=== PATIENT | male | born 1940 | race Caucasian/White ===

== ENCOUNTER 2016-09-19 14:16 | Outpatient (CLI) ==
[2012-10-01 09:40] VITALS: TEMP 97.9
--- NOTE | 2016-09-19 15:25 | DI ---
EXAM: LEFT KNEE. HISTORY: Status post 2 weeks total knee arthroplasty, follow-up FINDINGS / IMPRESSION: Left knee three views. No prior imaging was available for comparison. The prosthesis units appears seated with no obvious dislodgement. There is joint fluid remaining pr esent, mild to moderate volume. No joint gas or soft tissue gas is identified. No acute fracture. Findings can be reviewed by orthopedics if indicated.
== END 2016-09-19 14:17 | disposition home or self-care (01) ==
LOC: RAD 14:16
PROVIDERS: ATTEND Nurse Practitioner Family
DX: Z96.652 Presence of left artificial knee joint (principal); Z47.1 Aftercare following joint replacement surgery; M17.12 Unilateral primary osteoarthritis, left knee

== ENCOUNTER 2016-09-26 15:00 | Outpatient (RCR) ==
[2012-10-01 09:40] VITALS: TEMP 97.9
--- NOTE | 2016-09-04 15:00 | RS.OPPTDN ---
Subjective Date of Note: 09/04/16 Visit #: 2 Date of Evaluation: 08/31/16 Payer Source: MEDICARE Treatment Diagnosis: L TKA Current Subjective/complaints:: Patient says he takes pain meds every 6 hours and alternates Tylenol 500mg also. He says pain has not been too bad and uses ice often at home. He has been performing HEP and feels his knee is getting better. Pain Assessment - Pain Description Pain Location: left knee Current Pain Intensity: 2/10 - Heat/Cryotherapy Treatment: Cryotherapy (20 mins to ant/post L knee following therex) Interventions - Exercise/Activities/Manual Therapy Exercises/Activities: Patient begins to receive PROM for L knee flex/ext, HS, and heel cords and gentle stretching in supine. Patient then performs multiple reps of: QS, Heel slides, hip abd/add and SLR AAROM, SAQ, AP and DF with red tband, Pillow squeezes. Patient sits for LAQ and stands for Hip abd, Ham curls , and hip flexion. All x 10 reps. Total minutes of Exercise: 35 Manual Therapy: NA HOME EXERCISE PROGRAM: standing HS curl, SAQ's, and quad sets to add to the HEP is was given from the hospital. - Charges Total Direct Minutes: 35 Total Treatment Time: 55 Procedures billed for this date of service:: cp, ex2 Assessment: Patient progressing with ROM as he is demo 95 degrees. Mr. Thompson is taking pain meds every 6 hours and ambulating with RW. He demo moderate swelling to the L knee extending to the calf and foot, which is mildly relieved by cryotherapy. He is able to perform and carlos supine and standing therex well and should benefit from further therex and modalities. MD office confirmed with patient/ that therapy staff may remove florentin this week. Patient Education: Education of diagnosis, Body/Joint mechanics, Home Exercise Program, Home Safety, Activity Modification, Education of Plan of Care Patient demonstrates compliance with HEP?: Yes Short Term Goals Goal #1: Patient independent in basic HEP. Goal to be met by: 09/18/16 Progress towards Goal:: Progressing Goal #2: Pt to demo. full left knee extension. Goal to be met by: 09/18/16 Goal #3: Pt to demo. active left knee flexion to 110 degrees. Goal to be met by: 09/18/16 Goal #4: Pt to demonstrate good quad strength of the left knee. 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 Goal to be met by: 10/24/16 Goal #2: Score on LE Functional scale improved to <39% impairment. Goal to be met by: 10/24/16 Goal #3: Pt to amb. w/o assistive device, community distances w/ min. gait deviation Goal to be met by: 10/24/16 Goal #4: LLE ROM WFL's to perform all selfcare and ADL's without difficulty. Goal to be met by: 10/24/16 Plan PLAN OF CARE EXPIRES ON:: 10/24/16 ORDER # VISITS AND/OR THROUGH DATE: 10/24/16 PLAN: Progress Exercises
--- NOTE | 2016-09-04 15:01 | RS.OPPTEV2 ---
Date of Note: 08/31/16 Visit #: 1 Date of Evaluation: 08/31/16 Payer Source: MEDICARE Surgery Performed?: Yes Procedure Performed: Left TKA Date of Procedure: 08/28/16 Treatment Diagnosis: Left knee pain, knee stiffness, s/p left TKA Prior Level of Function.....Patient was independent with: ADL's, Self Care, Caregiving, Ambulation/Mobility, Community Integration/Access Functional Limitations: Sleep, Self Care, ADL's, Reaching, Pushing, Pulling, Lifting, Carrying, Sitting, Standing, Bending, Squatting, Ambulation, Community Access/Integration Current Subjective/complaints:: Patient reports being in the hospital one night. States he has had no prior surgeries to the left LE. He is using a rolling walker. States he has a few steps to get into his home, but no steps inside the home. States he is icing his knee and taking pain medication as prescribed. Reports receiving an injection in the right knee, which has helped. He is limited with all selfcare, ADL's, and ambulation at this time. He was independent with all activities and active outside the home. Treatment Side (optional): Left Medical History Medical History: Hypertension, Arthritis Medical History Comments:: Pulmonary Fibrosis Smoking Status: Never smoker Hx Home Medications: pain medication -does not have list with him Patient's Goals: His goal is to return to his previous level of function. Pain Assessment - Pain Description Pain Location: left knee Current Pain Intensity: 2/10 Worst Pain Intensity: 5/10 Functional Outcome Measure LE Functional Scale: 31 (31/80=61.25% impairment) - G Codes & Severity Modifier G Codes & Modifier: Mobility current CL. Mobility goal CJ Source of G Code score: LE functional scale Observation - Observation Inspection: Presents with light dressing over incision. Demonstrates bruising throughout posterior aspect of knee. Girth Measurement Lower: Left LE: tibial plateau 43 cm, malleoli 26.5 cm Gait - Gait Pattern Gait Comments: Pt ambulates with rolling walker with decreased stance on the left LE. Demonstrates decreased left hip and knee flexion during swing phase. - Left Knee ROM Left Knee Extension: -3 degrees from full extension Left Knee Flexion: 90 (degrees AROM) - Left Knee Strength Left Knee Extension: 4- Good- Left Knee Flexion: 4 Good - Right Knee Strength Right Knee Extension: 4+ Good + Right Knee Flexion: 4+ Good + Palpation Comments:: Mild general tenderness throughout left knee joint. Sensation - Sensation Comments: Reports impaired sensation in LE's that he had prior to surgery. - Heat/Cryotherapy Treatment: Cryotherapy (X 15 mins to left knee following evaluation) Interventions - Exercise/Activities/Manual Therapy Exercises/Activities: Patient instructed in standing HS curl, SAQ's, and quad sets to add to the HEP is was given from the hospital. Manual Therapy: NA HOME EXERCISE PROGRAM: standing HS curl, SAQ's, and quad sets to add to the HEP is was given from the hospital. - Charges Total Direct Minutes: 45 mins Total Treatment Time: 55 mins Procedures billed for this date of service:: EVAL Low complexity Assessment Assessment: Patient presents three days s/p left TKA. He demonstrates limited ROM and strength, along with overall limitation with selfcare, ADL's, and ambulation. He exhibits potential to benefit from therapy to regain functional AROM and return to his previous level of activity. Patient Education: Education of diagnosis, Body/Joint mechanics, Home Exercise Program, Home Safety, Activity Modification, Education of Plan of Care Rehab Potential: Good Short Term Goals Goal #1: Patient independent in basic HEP. Goal to be met by: 09/18/16 Goal #2: Pt to demo. full left knee extension. Goal to be met by: 09/18/16 Goal #3: Pt to demo. active left knee flexion to 110 degrees. Goal to be met by: 09/18/16 Goal #4: Pt to demonstrate good quad strength of the left knee. Goal to be met by: 09/18/16 Halfway Goals Goal #1: Pt knows HEP and to continue ex's to maintain functional level at D/C. Goal to be met by: 10/24/16 Goal #2: Score on LE Functional scale improved to <39% impairment. Goal to be met by: 10/24/16 Goal #3: Pt to amb. w/o assistive device, community distances w/ min. gait deviation Goal to be met by: 10/24/16 Goal #4: LLE ROM WFL's to perform all selfcare and ADL's without difficulty. Goal to be met by: 10/24/16 Plan - Treatment to be Provided Procedures: Therapeutic Exercises, Therapeutic Activity, Manual Therapy, Patient Education Modalities: Electrical Stimulation, Cryotherapy, Hot Packs (once 2 weeks or more from surgery (if necessary)) - Treatment Plan Frequency: 3 X week Duration: 6 weeks ORDER # VISITS AND/OR THROUGH DATE: 10/24/16 - Treatment Code (1) Left knee pain Qualifiers: Chronicity: acute Qualified Description: Acute pain of left knee Qualifier Code(s): (M25.562) Pain in left knee (2) Knee stiffness Qualifiers: Laterality: left Qualified Description: Knee stiffness, left Qualifier Code(s): (M25.662) Stiffness of left knee, not elsewhere classified (3) Aftercare following joint replacement surgery Qualifiers: Joint replacement surgery site: knee Laterality: left Qualified Description: Aftercare following left knee joint replacement surgery Qualifier Code(s): (Z47.1) Aftercare following joint replacement surgery
--- NOTE | 2016-09-06 14:20 | RS.OPPTDN ---
Subjective Date of Note: 09/06/16 Visit #: 3 Date of Evaluation: 08/31/16 Payer Source: MEDICARE Treatment Diagnosis: Left knee pain, knee stiffness, s/p left TKA Current Subjective/complaints:: Patient reports he feels the knee is better as the week progresses.He is doing his HEP and ice as needed.He continues to take pain meds. ~ every 6 hours. Pain Assessment - Pain Description Pain Location: left knee Pain Description: Tightness, Dull, Aching Current Pain Intensity: 3/10 - Heat/Cryotherapy Treatment: Cryotherapy (15 mins. after exercises) Interventions - Exercise/Activities/Manual Therapy Exercises/Activities: 45 mins. total of TKA exercises,consisting of /10-15 reps. each of ankle pumps with red t-band,QS,SAQ's with 2 1/2 #,SLR's , heelslides.AROM is 97 flexion ,-4 extension.Flexion with stretches increased to 103. Total minutes of Exercise: 45 Manual Therapy: NA Total minutes of Manual Therapy: 0 HOME EXERCISE PROGRAM: standing HS curl, SAQ's, and quad sets to add to the HEP is was given from the hospital. - Charges Total Direct Minutes: 45 Total Treatment Time: 60 Procedures billed for this date of service:: ex 3,cp Assessment: Progressing well,good demo of exercises,soft end feel present for knee flexion.He is compliant to HEP.He has minimal antalgic gait as he exits clinic today. Patient Education: Education of diagnosis, Body/Joint mechanics, Home Exercise Program, Home Safety, Activity Modification, Education of Plan of Care Patient demonstrates compliance with HEP?: Yes Short Term Goals Goal #1: Patient independent in basic HEP. Goal to be met by: 09/18/16 Progress towards Goal:: Progressing Goal #2: Pt to demo. full left knee extension. Goal to be met by: 09/18/16 Progress towards Goal:: Progressing Goal #3: Pt to demo. active left knee flexion to 110 degrees. Goal to be met by: 09/18/16 Progress towards Goal:: Progressing Goal #4: Pt to demonstrate good quad strength of the left knee. Goal to be met by: 09/18/16 Mcc Goals Goal #1: Pt knows HEP and to continue ex's to maintain functional level at D/C. Goal to be met by: 10/24/16 Progress towards goal: Progressing Goal #2: Score on LE Functional scale improved to <39% impairment. Goal to be met by: 10/24/16 Goal #3: Pt to amb. w/o assistive device, community distances w/ min. gait deviation Goal to be met by: 10/24/16 Goal #4: LLE ROM WFL's to perform all selfcare and ADL's without difficulty. Goal to be met by: 10/24/16 Plan PLAN OF CARE EXPIRES ON:: 10/24/16 ORDER # VISITS AND/OR THROUGH DATE: 10/24/16 PLAN: Continue Plan of Care
--- NOTE | 2016-09-08 16:44 | RS.OPPTDN ---
Subjective Date of Note: 09/08/16 Date of Evaluation: 08/31/16 Payer Source: MEDICARE Treatment Diagnosis: Left knee pain, knee stiffness, s/p left TKA Current Subjective/complaints:: Patient says he is to have an xray of his knee here next week and wants us to check on the order. He says he has been practicing with his HEP often. Pain Assessment - Pain Description Pain Location: left knee Pain Description: Tightness, Dull, Aching Current Pain Intensity: 3/10 - Heat/Cryotherapy Treatment: Cryotherapy (x 20 mins to the L knee prior to staple removal) Interventions - Exercise/Activities/Manual Therapy Exercises/Activities: 38 mins. total of TKA exercises,consisting of removing 30 florentin. Passive ROM/stretching, heel cord stretching. QS, heel slides, SAQ, hip abd/add, ankle pumps, LAQ, hip flexion. Manual Therapy: NA HOME EXERCISE PROGRAM: standing HS curl, SAQ's, and quad sets to add to the HEP is was given from the hospital. - Charges Total Direct Minutes: 38 Total Treatment Time: 58 Procedures billed for this date of service:: cp, ex3 Assessment: Incision healing with no redness surrounding the knee, minimal swelling, purple to yellow bruising to the medial knee, thigh, and calf. Florentin removed easily with steri strips, plus extra for home. Patient Education: Education of diagnosis, Body/Joint mechanics, Home Exercise Program, Home Safety, Activity Modification, Education of Plan of Care Patient demonstrates compliance with HEP?: Yes Short Term Goals Goal #1: Patient independent in basic HEP. Goal to be met by: 09/18/16 Progress towards Goal:: Progressing Goal #2: Pt to demo. full left knee extension. Goal to be met by: 09/18/16 Progress towards Goal:: Progressing Goal #3: Pt to demo. active left knee flexion to 110 degrees. Goal to be met by: 09/18/16 Progress towards Goal:: Progressing Goal #4: Pt to demonstrate good quad strength of the left knee. 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 Goal to be met by: 10/24/16 Progress towards goal: Progressing Goal #2: Score on LE Functional scale improved to <39% impairment. Goal to be met by: 10/24/16 Goal #3: Pt to amb. w/o assistive device, community distances w/ min. gait deviation Goal to be met by: 10/24/16 Goal #4: LLE ROM WFL's to perform all selfcare and ADL's without difficulty. Goal to be met by: 10/24/16 Plan PLAN OF CARE EXPIRES ON:: 10/24/16 ORDER # VISITS AND/OR THROUGH DATE: 10/24/16 PLAN: Progress Exercises (checked registration for xray order. Will contact MD office as we have not received order.)
--- NOTE | 2016-09-12 16:25 | RS.OPPTDN ---
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 He says he has not performed many exercises the past few days because he has been busy and fatigued. He does say he has been walking a lot. Pain Assessment - Pain Description Pain Location: left knee Pain Description: Tightness, Dull, Aching Current Pain Intensity: 07/07 - Heat/Cryotherapy Treatment: Cryotherapy (20 mins to ant/post knee (L)) Interventions - Exercise/Activities/Manual Therapy Exercises/Activities: 38 mins. L knee stretching for flex/ext, hamstring and heel cord stretching. Multiple reps of SAQ, QS, Heel slides, hip abd/add, SLR, DF red tband, Patellar mobs. Assisted stretch with heel slides. Sitting: LAQ , Standing: hip flexion, ham curls. Manual Therapy: NA HOME EXERCISE PROGRAM: standing HS curl, SAQ's, and quad sets to add to the HEP is was given from the hospital. - Charges Total Direct Minutes: 38 Total Treatment Time: 58 Procedures billed for this date of service:: ex3, cp Assessment: Patient improving with active knee flexion to ~115 today. Continues with mod swelling extending to the L knee and calf. 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 Patient Education: Education of diagnosis, Body/Joint mechanics, Home Exercise Program, Home Safety, Activity Modification, Education of Plan of Care Patient demonstrates compliance with HEP?: Yes Short Term Goals Goal #1: Patient independent in basic HEP. Goal to be met by: 09/18/16 Progress towards Goal:: Progressing Goal #2: Pt to demo. full left knee extension. Goal to be met by: 09/18/16 Progress towards Goal:: Progressing Goal #3: Pt to demo. active left knee flexion to 110 degrees. Goal to be met by: 09/18/16 Progress towards Goal:: Progressing Goal #4: Pt to demonstrate good quad strength of the left knee. Goal to be met by: 09/18/16 Ob/Gyn Doctor Goals Goal #1: Pt knows HEP and to continue ex's to maintain functional level at D/C. Goal to be met by: 10/24/16 Progress towards goal: Progressing Goal #2: Score on LE Functional scale improved to <39% impairment. Goal to be met by: 10/24/16 Goal #3: Pt to amb. w/o assistive device, community distances w/ min. gait deviation Goal to be met by: 10/24/16 Goal #4: LLE ROM WFL's to perform all selfcare and ADL's without difficulty. Goal to be met by: 10/24/16 Plan PLAN OF CARE EXPIRES ON:: 10/24/16 ORDER # VISITS AND/OR THROUGH DATE: 10/24/16 PLAN: Progress Exercises
--- NOTE | 2016-09-14 16:42 | RS.OPPTDN ---
Subjective Date of Note: 09/14/16 Visit #: 6 Date of Evaluation: 08/31/16 Payer Source: MEDICARE Treatment Diagnosis: Left knee pain, knee stiffness, s/p left TKA Current Subjective/complaints:: Reports dependent edema after sitting at meetings,etc.,but has good understanding of using ice and elevating the L LE. Pain Assessment - Pain Description Pain Location: left knee Pain Description: Tightness, Dull, Aching Current Pain Intensity: 3/10 - Heat/Cryotherapy Treatment: Cryotherapy (15 mins. after ex.) Interventions - Exercise/Activities/Manual Therapy Exercises/Activities: 50 mins. L TKA protocol for 5 mins. on bike,then ankle pumps,SAQ,heelslides,SLR's with 4 # ,3/10 reps. each.Grade II mobs. AROM 107, 110 x2 with stretch,extension is 0 passively,-3 actively with SAQ. Total minutes of Exercise: 50 Manual Therapy: NA Total minutes of Manual Therapy: 0 HOME EXERCISE PROGRAM: standing HS curl, SAQ's, and quad sets to add to the HEP is was given from the hospital. - Charges Total Direct Minutes: 45 Total Treatment Time: 65 Procedures billed for this date of service:: cp,ex3 Assessment: Patient has improved motion with less difficulty and less intense pain.He has moderate warmth and edema ,which improves after exercises today.He is compliant to HEP. Patient Education: Education of diagnosis, Body/Joint mechanics, Home Exercise Program, Home Safety, Activity Modification, Education of Plan of Care Patient demonstrates compliance with HEP?: Yes Short Term Goals Goal #1: Patient independent in basic HEP. Goal to be met by: 09/18/16 Progress towards Goal:: Progressing Goal #2: Pt to demo. full left knee extension. Goal to be met by: 09/18/16 Progress towards Goal:: Progressing Goal #3: Pt to demo. active left knee flexion to 110 degrees. Goal to be met by: 09/18/16 Progress towards Goal:: Progressing Goal #4: Pt to demonstrate good quad strength of the left knee. Goal to be met by: 09/18/16 Web Pressman Goals Goal #1: Pt knows HEP and to continue ex's to maintain functional level at D/C. Goal to be met by: 10/24/16 Progress towards goal: Progressing Goal #2: Score on LE Functional scale improved to <39% impairment. Goal to be met by: 10/24/16 Goal #3: Pt to amb. w/o assistive device, community distances w/ min. gait deviation Goal to be met by: 10/24/16 Goal #4: LLE ROM WFL's to perform all selfcare and ADL's without difficulty. Goal to be met by: 10/24/16 Plan PLAN OF CARE EXPIRES ON:: 10/24/16 ORDER # VISITS AND/OR THROUGH DATE: 10/24/16 PLAN: Continue Plan of Care
--- NOTE | 2016-09-15 14:50 | RS.OPPTDN ---
Subjective Date of Note: 09/15/16 Visit #: 7 Date of Evaluation: 08/31/16 Payer Source: MEDICARE Treatment Diagnosis: Left knee pain, knee stiffness, s/p left TKA Current Subjective/complaints:: Reports doing well,has elevated pain during the night,limiting good sleep at times.He is pleased with his progress. Pain Assessment - Pain Description Pain Location: left knee Pain Description: Tightness, Dull, Aching Current Pain Intensity: 3/10 - Heat/Cryotherapy Treatment: Cryotherapy (15 mins.after exercises) Interventions - Exercise/Activities/Manual Therapy Exercises/Activities: 45 mins. L TKA protocol for 5 mins. on bike,then ankle pumps,SAQ,heelslides,SLR's with 4 # ,3/10 reps. each.Grade II mobs. AROM 109,110 - 111 x2 with stretch,extension is 0 passively,-3 actively with SAQ. Total minutes of Exercise: 45 Manual Therapy: NA Total minutes of Manual Therapy: 0 HOME EXERCISE PROGRAM: standing HS curl, SAQ's, and quad sets to add to the HEP is was given from the hospital. - Charges Total Direct Minutes: 40 Total Treatment Time: 60 Procedures billed for this date of service:: cp,ex 3 Assessment: Progressing well toward all goals,continues to have soft end feel for flexion.He ahs improved gait ,using cane today ,as opposed to wlaker.He has good understanding of HEP and pain control. Patient Education: Education of diagnosis, Body/Joint mechanics, Home Exercise Program, Home Safety, Activity Modification, Education of Plan of Care Patient demonstrates compliance with HEP?: Yes Short Term Goals Goal #1: Patient independent in basic HEP. Goal to be met by: 09/18/16 Progress towards Goal:: Progressing Goal #2: Pt to demo. full left knee extension. Goal to be met by: 09/18/16 (passively is WNL) Progress towards Goal:: Partially Met Goal #3: Pt to demo. active left knee flexion to 110 degrees. Goal to be met by: 09/18/16 (110 the last 2 visits) Progress towards Goal:: Partially Met Goal #4: Pt to demonstrate good quad strength of the left knee. Goal to be met by: 09/18/16 Progress towards Goal:: Progressing [facility] Goals Goal #1: Pt knows HEP and to continue ex's to maintain functional level at D/C. Goal to be met by: 10/24/16 Progress towards goal: Progressing Goal #2: Score on LE Functional scale improved to <39% impairment. Goal to be met by: 10/24/16 Goal #3: Pt to amb. w/o assistive device, community distances w/ min. gait deviation Goal to be met by: 10/24/16 Goal #4: LLE ROM WFL's to perform all selfcare and ADL's without difficulty. Goal to be met by: 10/24/16 Progress towards goal: Progressing Plan PLAN OF CARE EXPIRES ON:: 10/24/16 ORDER # VISITS AND/OR THROUGH DATE: 10/24/16 PLAN: Progress Exercises
--- NOTE | 2016-09-19 14:27 | RS.OPPTDN ---
Subjective Date of Note: 09/19/16 Visit #: 8 Date of Evaluation: 08/31/16 Payer Source: MEDICARE Treatment Diagnosis: Left knee pain, knee stiffness, s/p left TKA Current Subjective/complaints:: Patient's reports patient doesn't eat much.He rpeorts being cold most of the time ,and occasionally nauaeated.we discussed for him to report this to his DrBethany,but we did advise patient to take his pain meds. with food. Pain Assessment - Pain Description Pain Location: left knee Pain Description: Tightness, Dull, Aching Current Pain Intensity: not rated - Heat/Cryotherapy Treatment: Cryotherapy (10 mins. after exercises) Interventions - Exercise/Activities/Manual Therapy Exercises/Activities: 50 mins. L TKA protocol for 10 mins. on bike,leg press @ 60,75 ,90 # x 15 reps. each,then ankle pumps,SAQ,heelslides,SLR's with 5 # ,3/ 10 reps. each.Grade II mobs. AROM 109,110- 112 x2 with stretch,extension is 0 passively,-3 actively with SAQ. Total minutes of Exercise: 50 Manual Therapy: NA Total minutes of Manual Therapy: 0 HOME EXERCISE PROGRAM: standing HS curl, SAQ's, and quad sets to add to the HEP is was given from the hospital. - Charges Total Direct Minutes: 50 Total Treatment Time: 60 Procedures billed for this date of service:: ex 3,cp Assessment: Patient has less edema ,less warmth after treatment today.He initially had more edema present than last session ,but no loss of motion compared to last visit.He reports fatigue with leg press exercises,but no report of sharp pain in the knee. Patient Education: Education of diagnosis, Body/Joint mechanics, Home Exercise Program, Home Safety, Activity Modification, Education of Plan of Care Patient demonstrates compliance with HEP?: Yes Short Term Goals Goal #1: Patient independent in basic HEP. Goal to be met by: 09/18/16 Progress towards Goal:: Progressing Goal #2: Pt to demo. full left knee extension. Goal to be met by: 09/18/16 (passively is WNL) Progress towards Goal:: Partially Met Goal #3: Pt to demo. active left knee flexion to 110 degrees. Goal to be met by: 09/18/16 (110 the last 3 visits) Progress towards Goal:: Partially Met Goal #4: Pt to demonstrate good quad strength of the left knee. Goal to be met by: 09/18/16 Progress towards Goal:: Progressing Detention Goals Goal #1: Pt knows HEP and to continue ex's to maintain functional level at D/C. Goal to be met by: 10/24/16 Progress towards goal: Progressing Goal #2: Score on LE Functional scale improved to <39% impairment. Goal to be met by: 10/24/16 Goal #3: Pt to amb. w/o assistive device, community distances w/ min. gait deviation Goal to be met by: 10/24/16 Goal #4: LLE ROM WFL's to perform all selfcare and ADL's without difficulty. Goal to be met by: 10/24/16 Progress towards goal: Progressing Plan PLAN OF CARE EXPIRES ON:: 10/24/16 ORDER # VISITS AND/OR THROUGH DATE: 10/24/16 PLAN: Progress Exercises
--- NOTE | 2016-09-21 16:18 | RS.OPPTDN ---
Subjective Date of Note: 09/21/16 Visit #: 9 Date of Evaluation: 08/31/16 Payer Source: MEDICARE Treatment Diagnosis: Left knee pain, knee stiffness, s/p left TKA Current Subjective/complaints:: Patient reports stiffness left knee, but continued improvement in function each day. Pain Assessment - Pain Description Pain Location: left knee Pain Description: Tightness, Dull, Aching Current Pain Intensity: 3/10 - Heat/Cryotherapy Treatment: Cryotherapy ([id number] to the left knee following exercise. Patient in supine. ) Interventions - Exercise/Activities/Manual Therapy Exercises/Activities: [id number] total. 10 mins. on bike(not included in direct time). Leg press @ 60#, 75#, and 90# x 15 reps each. Ankle pumps, SAQ, and assisted heelslides. SLR 5# and SAQ with 5#, 3/10 reps each. Grade II mobs. Active flexion 110 degrees, Passive flexion 114 degrees, and extension to neutral passively, and -2 actively. Total minutes of Exercise: 40mins direct, 50mins total Manual Therapy: NA HOME EXERCISE PROGRAM: standing HS curl, SAQ's, and quad sets to add to the HEP is was given from the hospital. - Charges Total Direct Minutes: 40mins Total Treatment Time: 60mins Procedures billed for this date of service:: EX3, CP Assessment: Patient consistently progressing with ROM and strengthening exercises. Patient Education: Body/Joint mechanics, Home Exercise Program Comments: Reviewed dx, joint mechanics, and schedule of use of ice packs. Patient demonstrates compliance with HEP?: Yes Short Term Goals Goal #1: Patient independent in basic HEP. Goal to be met by: 09/18/16 Progress towards Goal:: Progressing Goal #2: Pt to demo. full left knee extension. Goal to be met by: 09/18/16 (passively is WNL) Progress towards Goal:: Partially Met Goal #3: Pt to demo. active left knee flexion to 110 degrees. Goal to be met by: 09/18/16 Progress towards Goal:: Met Comments:: Active flexion to 110 degrees today. Goal #4: Pt to demonstrate good quad strength of the left knee. Goal to be met by: 09/18/16 Progress towards Goal:: Progressing [facility] Goals Goal #1: Pt knows HEP and to continue ex's to maintain functional level at D/C. Goal to be met by: 10/24/16 Progress towards goal: Progressing Goal #2: Score on LE Functional scale improved to <39% impairment. Goal to be met by: 10/24/16 Goal #3: Pt to amb. w/o assistive device, community distances w/ min. gait deviation Goal to be met by: 10/24/16 Goal #4: LLE ROM WFL's to perform all selfcare and ADL's without difficulty. Goal to be met by: 10/24/16 Progress towards goal: Progressing Plan PLAN OF CARE EXPIRES ON:: 10/24/16 ORDER # VISITS AND/OR THROUGH DATE: 10/24/16 PLAN: Continue Plan of Care (Continue progressing exercise to increase strength and ROM.)
--- NOTE | 2016-09-22 16:36 | RS.OPPTDN ---
Subjective Date of Note: 09/22/16 Visit #: 10 Date of Evaluation: 08/31/16 Payer Source: MEDICARE Treatment Diagnosis: Left knee pain, knee stiffness, s/p left TKA Current Subjective/complaints:: Patient states he is happy with how well he is doing. His says he is definitely getting stronger. States he has been exercising at home and working on patellar mobs. He presents ambulating with SC. Pain Assessment - Pain Description Pain Location: left knee (says no longer has the pain behind the knee anymore) Pain Description: Tightness, Dull, Aching Current Pain Intensity: "only a little" - Heat/Cryotherapy Treatment: Cryotherapy (x 20 mins to the L knee) Interventions - Exercise/Activities/Manual Therapy Exercises/Activities: 48 mins (10 not charged with bike). Stationary bike for/ retro with stretch x 10 mins. Leg presses 60# 3x10, 75# 2x10, Passive stretching for knee flex/ext, heel cord stretching, QS, SAQ 5#, SLR 5#, Patellar mobs, Grades I-III joint mobs . All therex 07/07. 10th visit reassessment. Manual Therapy: NA HOME EXERCISE PROGRAM: standing HS curl, SAQ's, and quad sets to add to the HEP is was given from the hospital. - Objective Findings Observations,measurements,etc.: LE Functional REassessment: 36/80 or 55% impairment. Showing 3 areas of improvement - Charges Total Direct Minutes: 38 Total Treatment Time: 48 Procedures billed for this date of service:: ex3, cp Assessment: Patient now amb in the dept without cane, but uses SC in public. He appears to have equal WB with amb using SC. He is consistent with HEP. Mild improvement with LE Functional Scale, but did place patient in progressed category. Patient Education: Education of diagnosis, Body/Joint mechanics, Home Exercise Program, Home Safety, Activity Modification, Education of Plan of Care Patient demonstrates compliance with HEP?: Yes Short Term Goals Goal #1: Patient independent in basic HEP. Goal to be met by: 09/18/16 Progress towards Goal:: Met Goal #2: Pt to demo. full left knee extension. Goal to be met by: 09/18/16 (passively is WNL) Progress towards Goal:: Partially Met Goal #3: Pt to demo. active left knee flexion to 110 degrees. Goal to be met by: 09/18/16 Progress towards Goal:: Met Goal #4: Pt to demonstrate good quad strength of the left knee. Goal to be met by: 09/18/16 Progress towards Goal:: Progressing [facility] Goals Goal #1: Pt knows HEP and to continue ex's to maintain functional level at D/C. Goal to be met by: 10/24/16 Progress towards goal: Progressing Goal #2: Score on LE Functional scale improved to <39% impairment. Goal to be met by: 10/24/16 Progress towards goal: Progressing Comments: 55% at today's session Goal #3: Pt to amb. w/o assistive device, community distances w/ min. gait deviation Goal to be met by: 10/24/16 Progress towards goal: Progressing Goal #4: LLE ROM WFL's to perform all selfcare and ADL's without difficulty. Goal to be met by: 10/24/16 Progress towards goal: Progressing Plan PLAN OF CARE EXPIRES ON:: 10/24/16 ORDER # VISITS AND/OR THROUGH DATE: 10/24/16 PLAN: Progress Exercises Comments:: Patient to continue 8 more sessions per order
--- NOTE | 2016-09-26 16:13 | RS.OPPTDN ---
Subjective Date of Note: 09/26/16 Visit #: 11 Date of Evaluation: 08/31/16 Payer Source: MEDICARE Treatment Diagnosis: Left knee pain, knee stiffness, s/p left TKA Current Subjective/complaints:: No c/o.Pleased with his progress. Pain Assessment - Pain Description Pain Location: left knee (says no longer has the pain behind the knee anymore) Pain Description: Tightness, Dull, Aching Current Pain Intensity: "only a little" - Heat/Cryotherapy Treatment: Cryotherapy (15 mins.after exercises) Interventions - Exercise/Activities/Manual Therapy Exercises/Activities: 50 mins. total 10 on bike,followed by 3/15 on leg press @ 75#,3/15 single leg @ 30 #,then mini-squats leaning on therapy ball against wall.Supine exercises of SAQ's with red t-band,07/07.SLR 3/5 ,then SLR with hip externally rotated ,also 5.Grade II mobs of AP glides.AROM is 110 flexion , 113 with asssisted stretch,extension is WNL. Total minutes of Exercise: 50 Manual Therapy: NA Total minutes of Manual Therapy: 0 HOME EXERCISE PROGRAM: standing HS curl, SAQ's, and quad sets to add to the HEP is was given from the hospital. - Charges Total Direct Minutes: 40 Total Treatment Time: 50 Procedures billed for this date of service:: ex 3,cp Assessment: Progressing well,increased quad strength present ,increased motion with less pain reported.He has moderate edema present ,but is only one month post-op. Patient Education: Education of diagnosis, Body/Joint mechanics, Home Exercise Program, Home Safety, Activity Modification, Education of Plan of Care Patient demonstrates compliance with HEP?: Yes Short Term Goals Goal #1: Patient independent in basic HEP. Goal to be met by: 09/18/16 Progress towards Goal:: Met Goal #2: Pt to demo. full left knee extension. Goal to be met by: 09/18/16 (passively is WNL) Progress towards Goal:: Partially Met Goal #3: Pt to demo. active left knee flexion to 110 degrees. Goal to be met by: 09/18/16 Progress towards Goal:: Met Goal #4: Pt to demonstrate good quad strength of the left knee. Goal to be met by: 09/18/16 Progress towards Goal:: Progressing [facility] Goals Goal #1: Pt knows HEP and to continue ex's to maintain functional level at D/C. Goal to be met by: 10/24/16 Progress towards goal: Progressing Goal #2: Score on LE Functional scale improved to <39% impairment. Goal to be met by: 10/24/16 Progress towards goal: Progressing Goal #3: Pt to amb. w/o assistive device, community distances w/ min. gait deviation Goal to be met by: 10/24/16 Progress towards goal: Progressing Goal #4: LLE ROM WFL's to perform all selfcare and ADL's without difficulty. Goal to be met by: 10/24/16 Progress towards goal: Progressing Plan PLAN OF CARE EXPIRES ON:: 10/24/16 ORDER # VISITS AND/OR THROUGH DATE: 10/24/16 PLAN: Continue Plan of Care
--- NOTE | 2016-10-02 13:21 | RS.PTSUM ---
Progress Note/Summary Date of Note: 09/29/16 Date of Evaluation: 08/31/16 Number of Visits: 10 Reporting Period for this Progress Note: 08/31/16 through 09/22/16 Current Complaints/Gains: Patient reports being pleased with his mobility and walking at home. He is performing his HEP and icing the knee twice a day. Reports continued difficulty ambulating long distances and stairs. Objective Measurements/Presentation: Demonstrates consistent knee flexion actively to 110 degrees. He can get full extension with a passive stretch. He is ambulating independently in our department with a straight cane and progressing on the multigym with weights. G Codes: Mobility current CK. Mobility goal CJ Source of G Code Score: 36/80=55% impairment per self scoring of LE functional scale. - Short Term Goals Goal #1: Patient independent in basic HEP. Goal to be met by: 09/18/16 Progress towards Goal:: Met Goal #2: Pt to demo. full left knee extension. Goal to be met by: 09/18/16 (passively is WNL) Progress towards Goal:: Partially Met Goal #3: Pt to demo. active left knee flexion to 110 degrees. Goal to be met by: 09/18/16 Progress towards Goal:: Met Goal #4: Pt to demonstrate good quad strength of the left knee. Goal to be met by: 09/18/16 Progress towards Goal:: Progressing - Analytics Intern Goals Goal #1: Pt knows HEP and to continue ex's to maintain functional level at D/C. Goal to be met by: 10/24/16 Progress towards goal: Progressing Goal #2: Score on LE Functional scale improved to <39% impairment. Goal to be met by: 10/24/16 Progress towards goal: Progressing Goal #3: Pt to amb. w/o assistive device, community distances w/ min. gait deviation Goal to be met by: 10/24/16 Progress towards goal: Progressing Goal #4: LLE ROM WFL's to perform all selfcare and ADL's without difficulty. Goal to be met by: 10/24/16 Progress towards goal: Progressing - Assessment Assessment of Improvement/Progress: Mr. Thompson demonstrates increased function per his reports, scoring of LE functional scale, and presentation in the department. He shows potential for increased strength. He reports continued difficulty walking community distances and ascending/descending stairs. Summary: Patient has made progress towards goals., Patient demonstrates potential to gain increased function with therapy - Plan Plan: Continue Plan of Care PLAN OF CARE EXPIRES ON:: 10/24/16 ORDER # VISITS AND/OR THROUGH DATE: 10/24/16
== END 2016-09-27 ==
PROVIDERS: ATTEND Orthopaedic Surgery
DX: Z47.1 Aftercare following joint replacement surgery (principal); Z96.652 Presence of left artificial knee joint; M17.12 Unilateral primary osteoarthritis, left knee

== ENCOUNTER 2016-10-16 15:00 | Outpatient (RCR) ==
[2012-10-01 09:40] VITALS: TEMP 97.9
--- NOTE | 2016-09-28 16:28 | RS.OPPTDN ---
Subjective Date of Note: 09/28/16 Visit #: 12 Date of Evaluation: 08/31/16 Payer Source: MEDICARE Treatment Diagnosis: Left knee pain, knee stiffness, s/p left TKA Current Subjective/complaints:: Reports having a good day,re[pirts walking more at home without the cane. Pain Assessment - Pain Description Pain Location: left knee Current Pain Intensity: not rated - Heat/Cryotherapy Treatment: Cryotherapy (15 mins. after ex.) Interventions - Exercise/Activities/Manual Therapy Exercises/Activities: 50 mins. total 10 on bike,followed by 3/15 on leg press @ 75,90,105#,3/15 ,then mini-squats leaning on therapy ball against wall.Supine exercises of SAQ's with 4#,15.SLR /15 ,then heelslides.AROM for flexion 110- 113,117 with stretch(but pain elevated). Total minutes of Exercise: 50 Manual Therapy: NA Total minutes of Manual Therapy: 0 HOME EXERCISE PROGRAM: standing HS curl, SAQ's, and quad sets to add to the HEP is was given from the hospital. - Charges Total Direct Minutes: 40 Total Treatment Time: 50 Procedures billed for this date of service:: ex3,cp Assessment: Progressing well,less edema present,has increased quad firing.Soft end feel continues present for knee flexion.He is attentive to recommendations of the therapy staff. Patient Education: Education of diagnosis, Body/Joint mechanics, Home Exercise Program, Home Safety, Activity Modification, Education of Plan of Care Patient demonstrates compliance with HEP?: Yes Short Term Goals Goal #1: Patient independent in basic HEP. Goal to be met by: 09/18/16 Progress towards Goal:: Met Goal #2: Pt to demo. full left knee extension. Goal to be met by: 09/18/16 (passively is WNL) Progress towards Goal:: Partially Met Goal #3: Pt to demo. active left knee flexion to 110 degrees. Goal to be met by: 09/18/16 Progress towards Goal:: Met Goal #4: Pt to demonstrate good quad strength of the left knee. Goal to be met by: 09/18/16 Progress towards Goal:: Progressing Patient Care Coordinator Goals Goal #1: Pt knows HEP and to continue ex's to maintain functional level at D/C. Goal to be met by: 10/24/16 Progress towards goal: Progressing Goal #2: Score on LE Functional scale improved to <39% impairment. Goal to be met by: 10/24/16 Progress towards goal: Progressing Goal #3: Pt to amb. w/o assistive device, community distances w/ min. gait deviation Goal to be met by: 10/24/16 Progress towards goal: Progressing Goal #4: LLE ROM WFL's to perform all selfcare and ADL's without difficulty. Goal to be met by: 10/24/16 Progress towards goal: Progressing Plan PLAN OF CARE EXPIRES ON:: 10/24/16 ORDER # VISITS AND/OR THROUGH DATE: 10/24/16 PLAN: Progress Exercises
--- NOTE | 2016-09-29 16:06 | RS.OPPTDN ---
Subjective Date of Note: 09/29/16 Visit #: 13 Date of Evaluation: 08/31/16 Payer Source: MEDICARE Treatment Diagnosis: Left knee pain, knee stiffness, s/p left TKA Current Subjective/complaints:: Patient says he is pleased with the flexibility he has now, but would like to continue with strengthening. He is using ice at home. He c/o he is not sleeping well just because of positioning. Pain Assessment - Pain Description Pain Location: left knee Current Pain Intensity: not rated - Heat/Cryotherapy Treatment: Cryotherapy Comments:: 20 mins to the L knee in supine after therex Interventions - Exercise/Activities/Manual Therapy Exercises/Activities: 35 mins. total 10 on bike for/retro,followed by /15 on leg press @ 75,90,105#,/. Patient supine for stretching for L knee. He performs: QS, SAQ 4#, SLR, DF and ham curls with blue tband 07/07. Ended with minisquats with physioball against the wall. Manual Therapy: NA HOME EXERCISE PROGRAM: standing HS curl, SAQ's, and quad sets to add to the HEP is was given from the hospital. - Charges Total Direct Minutes: 35 Total Treatment Time: 55 Procedures billed for this date of service:: cp, ex2 Assessment: Patient progressing welll with strengthening and flexibility to the L knee. He maintains consistent HEP and icing at home. Patient Education: Education of diagnosis, Body/Joint mechanics, Home Exercise Program, Home Safety, Activity Modification, Education of Plan of Care Patient demonstrates compliance with HEP?: Yes Short Term Goals Goal #1: Patient independent in basic HEP. Goal to be met by: 09/18/16 Progress towards Goal:: Met Goal #2: Pt to demo. full left knee extension. Goal to be met by: 09/18/16 (passively is WNL) Progress towards Goal:: Partially Met Goal #3: Pt to demo. active left knee flexion to 110 degrees. Goal to be met by: 09/18/16 Progress towards Goal:: Met Goal #4: Pt to demonstrate good quad strength of the left knee. Goal to be met by: 09/18/16 Progress towards Goal:: Progressing Custodial Goals Goal #1: Pt knows HEP and to continue ex's to maintain functional level at D/C. Goal to be met by: 10/24/16 Progress towards goal: Progressing Goal #2: Score on LE Functional scale improved to <39% impairment. Goal to be met by: 10/24/16 Progress towards goal: Progressing Goal #3: Pt to amb. w/o assistive device, community distances w/ min. gait deviation Goal to be met by: 10/24/16 Progress towards goal: Progressing Goal #4: LLE ROM WFL's to perform all selfcare and ADL's without difficulty. Goal to be met by: 10/24/16 Progress towards goal: Progressing Plan PLAN OF CARE EXPIRES ON:: 10/24/16 ORDER # VISITS AND/OR THROUGH DATE: 10/24/16 PLAN: Progress Exercises
--- NOTE | 2016-10-03 16:32 | RS.OPPTDN ---
Subjective Date of Note: 10/03/16 Visit #: 14 Date of Evaluation: 08/31/16 Payer Source: MEDICARE Treatment Diagnosis: Left knee pain, knee stiffness, s/p left TKA Current Subjective/complaints:: No c/o. Pain Assessment - Pain Description Pain Location: left knee Pain Description: Dull, Aching Current Pain Intensity: not rated - Heat/Cryotherapy Treatment: Cryotherapy (10 mins. after exercises.) Interventions - Exercise/Activities/Manual Therapy Exercises/Activities: 50 mins. total 10 on bike for/retro,followed by 3/15 on leg press @ 75,90,105#,15. Standing mini-squats 07/12 with therapy ball. Patient supine for stretching for L knee. He performs: QS, SAQ 4#, SLR, DF and ham curls with black t-band 07/1215. Grade II to III AP glides.AROM 113-117, 120 to 121 with agressive stretch. Total minutes of Exercise: 50 Manual Therapy: NA Total minutes of Manual Therapy: 0 HOME EXERCISE PROGRAM: standing HS curl, SAQ's, and quad sets to add to the HEP is was given from the hospital. - Charges Total Direct Minutes: 40 Total Treatment Time: 60 Procedures billed for this date of service:: ex 3,cp. Assessment: Patient has less warmth ,less edema present ,with well-healing incision of L knee.He has increasd strengh in L quads and hams.He is compliant to HEP. Patient Education: Education of diagnosis, Body/Joint mechanics, Home Exercise Program, Home Safety, Activity Modification, Education of Plan of Care Patient demonstrates compliance with HEP?: Yes Short Term Goals Goal #1: Patient independent in basic HEP. Goal to be met by: 09/18/16 Progress towards Goal:: Met Goal #2: Pt to demo. full left knee extension. Goal to be met by: 09/18/16 (passively is WNL) Progress towards Goal:: Partially Met Goal #3: Pt to demo. active left knee flexion to 110 degrees. Goal to be met by: 09/18/16 Progress towards Goal:: Met Goal #4: Pt to demonstrate good quad strength of the left knee. Goal to be met by: 09/18/16 Progress towards Goal:: Progressing [employer] Goals Goal #1: Pt knows HEP and to continue ex's to maintain functional level at D/C. Goal to be met by: 10/24/16 Progress towards goal: Progressing Goal #2: Score on LE Functional scale improved to <39% impairment. Goal to be met by: 10/24/16 Progress towards goal: Progressing Goal #3: Pt to amb. w/o assistive device, community distances w/ min. gait deviation Goal to be met by: 10/24/16 Progress towards goal: Progressing Goal #4: LLE ROM WFL's to perform all selfcare and ADL's without difficulty. Goal to be met by: 10/24/16 Progress towards goal: Progressing Plan PLAN OF CARE EXPIRES ON:: 10/24/16 ORDER # VISITS AND/OR THROUGH DATE: 10/24/16 PLAN: Progress Exercises
--- NOTE | 2016-10-05 16:28 | RS.OPPTDN ---
Subjective Date of Note: 10/05/16 Visit #: 15 Date of Evaluation: 08/31/16 Payer Source: MEDICARE Treatment Diagnosis: Left knee pain, knee stiffness, s/p left TKA Current Subjective/complaints:: Patient pleased with his progress. Pain Assessment - Pain Description Pain Location: left knee Pain Description: Dull, Aching Current Pain Intensity: not rated - Heat/Cryotherapy Treatment: Cryotherapy (20 mins. after exercises) Interventions - Exercise/Activities/Manual Therapy Exercises/Activities: 50 mins. total 10 on bike for/retro,followed by 07/12 on leg press @ 75,90,105#,07/12. Standing mini-squats 07/12 with therapy ball.Heelslides with 5#,07/12. AROM 117-120,122 with stretch. Total minutes of Exercise: 50 Manual Therapy: NA Total minutes of Manual Therapy: 0 HOME EXERCISE PROGRAM: standing HS curl, SAQ's, and quad sets to add to the HEP is was given from the hospital. - Charges Total Direct Minutes: 50 Total Treatment Time: 50 Procedures billed for this date of service:: ex 3,cp Assessment: Progressing well in all areas,continues to be compliant to HEP and recommendations of the therapy staff.The knee has less edema present,less warmth ,soft end feel for flexion. Patient Education: Education of diagnosis, Body/Joint mechanics, Home Exercise Program, Home Safety, Activity Modification, Education of Plan of Care Patient demonstrates compliance with HEP?: Yes Short Term Goals Goal #1: Patient independent in basic HEP. Goal to be met by: 09/18/16 Progress towards Goal:: Met Goal #2: Pt to demo. full left knee extension. Goal to be met by: 09/18/16 (passively is WNL) Progress towards Goal:: Partially Met Goal #3: Pt to demo. active left knee flexion to 110 degrees. Goal to be met by: 09/18/16 Progress towards Goal:: Met Goal #4: Pt to demonstrate good quad strength of the left knee. 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 Goal to be met by: 10/24/16 Progress towards goal: Partially Met Goal #2: Score on LE Functional scale improved to <39% impairment. Goal to be met by: 10/24/16 Progress towards goal: Progressing Goal #3: Pt to amb. w/o assistive device, community distances w/ min. gait deviation Goal to be met by: 10/24/16 Progress towards goal: Progressing Goal #4: LLE ROM WFL's to perform all selfcare and ADL's without difficulty. Goal to be met by: 10/24/16 Progress towards goal: Progressing Plan PLAN OF CARE EXPIRES ON:: 10/24/16 ORDER # VISITS AND/OR THROUGH DATE: 10/24/16 PLAN: Continue Plan of Care
--- NOTE | 2016-10-09 16:21 | RS.OPPTDN ---
Subjective Date of Note: 10/09/16 Visit #: 18 Date of Evaluation: 08/31/16 Payer Source: MEDICARE Treatment Diagnosis: Left knee pain, knee stiffness, s/p left TKA Current Subjective/complaints:: Reports increased L knee pain and soreness due to the car door hitting the L LE as he was getting into the car,less pain today than when he initially hit the knee. Pain Assessment - Pain Description Pain Location: left knee Pain Description: Dull, Aching Current Pain Intensity: 2 today Worst Pain Intensity: 5/10 on day of incident(see subjective) - Treatment Modality: Electrical Stim Unattended Parameters/Method Applied: 20 mins. high volt to L knee,channel 1 @ 110pv, channel 2 @ 130pv. Patient Position: Supine - Heat/Cryotherapy Treatment: Cryotherapy (concurrent with e-stim) Interventions - Exercise/Activities/Manual Therapy Exercises/Activities: 10 mins. total of gentle knee flexion/extension due to increased soreness.AROM is 118-119 flexion,extension is -3 actively doing LAQ. Total minutes of Exercise: 10 Manual Therapy: NA Total minutes of Manual Therapy: 0 HOME EXERCISE PROGRAM: Standing HS curl, SAQ's, and quad sets to add to the HEP is was given from the hospital. - Charges Total Direct Minutes: 10 Total Treatment Time: 30 Procedures billed for this date of service:: cp,e-stim,ex 1 Assessment: Patient has no loss of ROM ,although he has minimal increased edema and soreness present from the car door hitting the knee.He has good patellar mobility.He is compliant to HEP. Patient Education: Education of diagnosis, Body/Joint mechanics, Home Exercise Program, Home Safety, Activity Modification, Education of Plan of Care Patient demonstrates compliance with HEP?: Yes Short Term Goals Goal #1: Patient independent in basic HEP. Goal to be met by: 09/18/16 Progress towards Goal:: Met Goal #2: Pt to demo. full left knee extension. Goal to be met by: 09/18/16 (passively is WNL) Progress towards Goal:: Partially Met Goal #3: Pt to demo. active left knee flexion to 110 degrees. Goal to be met by: 09/18/16 Progress towards Goal:: Met Goal #4: Pt to demonstrate good quad strength of the left knee. 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 Goal to be met by: 10/24/16 Progress towards goal: Partially Met Goal #2: Score on LE Functional scale improved to <39% impairment. Goal to be met by: 10/24/16 Progress towards goal: Progressing Goal #3: Pt to amb. w/o assistive device, community distances w/ min. gait deviation Goal to be met by: 10/24/16 Progress towards goal: Partially Met Goal #4: LLE ROM WFL's to perform all selfcare and ADL's without difficulty. Goal to be met by: 10/24/16 Progress towards goal: Progressing Plan PLAN OF CARE EXPIRES ON:: 10/24/16 ORDER # VISITS AND/OR THROUGH DATE: 10/24/16 PLAN: Continue Plan of Care
--- NOTE | 2016-10-13 16:16 | RS.OPPTDN ---
Subjective Date of Note: 10/13/16 Visit #: 17 Date of Evaluation: 08/31/16 Payer Source: MEDICARE Treatment Diagnosis: Left knee pain, knee stiffness, s/p left TKA Current Subjective/complaints:: Reports having follow-up appt. with oli Campa report. Pain Assessment - Pain Description Pain Location: left knee Pain Description: Dull, Aching Current Pain Intensity: not rated Interventions - Exercise/Activities/Manual Therapy Exercises/Activities: 40 mins. total, 10 on exercise bike (non-billable),then 30 mins. of 3/15 onleg press @ 90,105 120 # using both LE's,then step-ups forward and laterally ,10 each on 4" step.AROM in supine is 118 - 121,extension is WNL. Total minutes of Exercise: 40 Manual Therapy: NA HOME EXERCISE PROGRAM: Standing HS curl, SAQ's, and quad sets to add to the HEP is was given from the hospital. - Charges Total Direct Minutes: 30 Total Treatment Time: 40 Procedures billed for this date of service:: ex 2 Assessment: Patient has progressed very well,has met or partially met rehab goals,continues to have increased quad hams. strength,steadier gait.He has no loss of balance with step-ups exercises. Patient Education: Home Exercise Program, Education of Plan of Care Patient demonstrates compliance with HEP?: Yes Short Term Goals Goal #1: Patient independent in basic HEP. Goal to be met by: 09/18/16 Progress towards Goal:: Met Goal #2: Pt to demo. full left knee extension. Goal to be met by: 09/18/16 (passively is WNL) Progress towards Goal:: Met Goal #3: Pt to demo. active left knee flexion to 110 degrees. Goal to be met by: 09/18/16 (118-121 today) Progress towards Goal:: Met Goal #4: Pt to demonstrate good quad strength of the left knee. 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 Goal to be met by: 10/24/16 Progress towards goal: Met Goal #2: Score on LE Functional scale improved to <39% impairment. Goal to be met by: 10/24/16 Progress towards goal: Progressing Goal #3: Pt to amb. w/o assistive device, community distances w/ min. gait deviation Goal to be met by: 10/24/16 Progress towards goal: Partially Met Goal #4: LLE ROM WFL's to perform all selfcare and ADL's without difficulty. Goal to be met by: 10/24/16 Progress towards goal: Progressing Plan PLAN OF CARE EXPIRES ON:: 10/24/16 ORDER # VISITS AND/OR THROUGH DATE: 10/24/16 PLAN: Continue Plan of Care
--- NOTE | 2016-10-16 16:27 | RS.OPPTDN ---
Subjective Date of Note: 10/16/16 Visit #: 18 Date of Evaluation: 08/31/16 Payer Source: MEDICARE Treatment Diagnosis: Left knee pain, knee stiffness, s/p left TKA Current Subjective/complaints:: Pleased with his progress,agrees with D/C plan today. Pain Assessment - Pain Description Pain Location: left knee Pain Description: Dull, Aching Current Pain Intensity: not rated - Heat/Cryotherapy Treatment: Cryotherapy (15 mins. after exercises) Interventions - Exercise/Activities/Manual Therapy Exercises/Activities: 30 mins. total, of 07/12 on leg press @ 90,105, 120 # using both LE's.AROM is 120 -123 flexion,extension is WNL.HEP copies given and discussed today. Total minutes of Exercise: 30 Manual Therapy: NA Total minutes of Manual Therapy: 0 HOME EXERCISE PROGRAM: Standing HS curl, SAQ's, and quad sets to add to the HEP is was given from the hospital. - Charges Total Direct Minutes: 30 Total Treatment Time: 45 Procedures billed for this date of service:: ex 2,cp Assessment: Patient met all rehab goals,agrees with D/C plan today.He has good strength and ROM in the L knee,steady gait without assistive. Patient Education: Education of diagnosis, Body/Joint mechanics, Home Exercise Program, Home Safety, Activity Modification, Education of Plan of Care Patient demonstrates compliance with HEP?: Yes Short Term Goals Goal #1: Patient independent in basic HEP. Goal to be met by: 09/18/16 Progress towards Goal:: Met Goal #2: Pt to demo. full left knee extension. Goal to be met by: 09/18/16 (passively is WNL) Progress towards Goal:: Met Goal #3: Pt to demo. active left knee flexion to 110 degrees. Goal to be met by: 09/18/16 (118-121 today) Progress towards Goal:: Met Goal #4: Pt to demonstrate good quad strength of the left knee. Goal to be met by: 09/18/16 Progress towards Goal:: Met Detention Goals Goal #1: Pt knows HEP and to continue ex's to maintain functional level at D/C. Goal to be met by: 10/24/16 Progress towards goal: Met Goal #2: Score on LE Functional scale improved to <39% impairment. Goal to be met by: 10/24/16 (33.75%) Progress towards goal: Met Goal #3: Pt to amb. w/o assistive device, community distances w/ min. gait deviation Goal to be met by: 10/24/16 Progress towards goal: Met Goal #4: LLE ROM WFL's to perform all selfcare and ADL's without difficulty. Goal to be met by: 10/24/16 Progress towards goal: Met Plan PLAN OF CARE EXPIRES ON:: 10/24/16 ORDER # VISITS AND/OR THROUGH DATE: 10/24/16 PLAN: Plan for Discharge
== END 2016-10-27 ==
PROVIDERS: ATTEND Orthopaedic Surgery
DX: M17.12 Unilateral primary osteoarthritis, left knee (principal); Z96.652 Presence of left artificial knee joint

== ENCOUNTER 2018-11-28 09:23 | Outpatient (RCR) | payer OTHER ==
[2012-10-01 09:40] VITALS: TEMP 97.9
[2018-12-25 14:15] VITALS: BP 126/56
== END 2018-12-28 23:59 ==
LOC: PUL.REHAB 09:23
PROVIDERS: ATTEND Allergy & Immunology Allergy
DX: J84.112 Idiopathic pulmonary fibrosis (principal)